=== PATIENT | male | born 1950 | race Caucasian/White ===

== ENCOUNTER → 2019-01-27 10:28 | Outpatient (CLI) | payer MEDICARE, OTHER, SELFPAY ==
--- NOTE | 2019-01-27 | DI.US.S_ITS ---
PROCEDURE: US PERIPH VENOUS LOW EXTREM RT INDICATIONS: RIGHT LEG PAIN/CELLULITIS TECHNIQUE: Real-time imaging, as well as color and pulse Doppler interrogation, were performed of the lower extremity deep veins from the inguinal ligament to the popliteal fossa. COMPARISON: None. FINDINGS: The deep veins are normally compressible, and free of intraluminal thrombus. Color and pulse Doppler demonstrate normal phasic intraluminal flow. There is normal augmentation response to distal compression maneuver. Edema noted in the right lower extremity compatible with reported history of cellulitis. IMPRESSION: No evidence of deep vein thrombosis involving the right lower extremity. Dictated by: Frannie Santa MD, PhD on 01/27/2019 at 10:59 Approved by: Frannie Santa MD, PhD on 01/27/2019 at 11:00
== END ==
PROVIDERS: Visit Provider Family Medicine
DX: M79.661 Pain in right lower leg (principal); L03.115 Cellulitis of right lower limb
CPT/HCPCS: 93971

== ENCOUNTER 2021-11-14 08:38 | Day surgery (SDC) | payer MEDICARE, OTHER, SELFPAY ==
[2021-11-14] VITALS (7 sets, daily range): BP systolic 124–145; BP diastolic 72–85; PULSE 44–51; RESP 8–16; TEMP 35.9–36.7; O2SAT 98–100; BMI 31.6
[2021-11-14 09:15] LABS: COVID19 -Nasal RAPID Negative (Negative)
[2021-11-14] MEDS: LACTATED RINGERS 1,000 ML 84 ML IV (09:31)
--- NOTE | 2021-11-14 10:38 | PM.PREOP ---
Pre-operative Note COVID-19 COVID-19 status: Negative Result date/Date tested (Pos, Neg/Pending): 11/13/21 Interval Note History & Physical reviewed/Exam performed by Physician: Yes Changes to H&P: No ASA Class (for procedural sedation): II
[2021-11-14] MEDS: MIDAZOLAM 5 MG/5 ML VIAL IV (11:34)
[2021-11-14] MEDS: fentaNYL 250 MCG/5 ML INJ IV (11:34)
--- NOTE | 2021-11-14 11:46 | PM.OP.COLON ---
Operative Date/Time/Diagnoses Date of procedure: 11/14/21 Time of procedure: 11:46 Pre-op diagnosis: Positive Cologuard test Post-op diagnosis: same Procedure & Clinicians Study performed: Colonoscopy Same procedure as scheduled: Yes Indications: Positive Cologuard test Surgeon: Manohar Hernadez Procedure Notes SCOAP/Timeout: Yes Procedure in detail: Procedure: The patient was brought to the endoscopy suite, placed in left lateral decubitus position. The patient was connected to monitoring devices. A time-out was performed. Sedation was administered. Once the patient was adequately sedated, a digital rectal exam was performed and was normal. The scope was then inserted and advanced to the cecum where the appendiceal orifice was identified and photographed. The terminal ileum was intubated and no abnormalities were noted. The scope was then slowly withdrawn over greater than 6 minutes. Mucosa was thoroughly inspected. There was sigmoid diverticulosis. There were no polyps. The scope was retroflexed in the rectum. There were mild internal hemorrhoids. The scope was straightened and removed. The patient was awakened and brought to recovery. Versed: 7 mg Fentanyl: 200 mcg EBL: 0 Findings: Moderate diverticulosis Scope withdrawal time: 33 min Sedation minutes: 61 Findings: divertiulosis Post-procedure Recommendations: Colonoscopy in 10 years Disposition: PACU
--- NOTE | 2021-11-14 13:24 | SUR.PHASEII ---
Late entry: Pt ready to go, no nausea, belly soft. Left unit in stable condition
== END 2021-11-14 12:50 | disposition home or self-care (01) ==
PROVIDERS: Referring Provider Surgery; Visit Provider Surgery
PROC: 0DJD8ZZ Inspection of Lower Intestinal Tract, Via Natural or Artificial Opening Endoscopic (ICD-10-PCS; CPT 45378; principal; 2021-11-14 10:00)
DX: R19.5 Other fecal abnormalities (principal); E11.9 Type 2 diabetes mellitus without complications; Z79.84 Long term (current) use of oral hypoglycemic drugs; K21.9 Gastro-esophageal reflux disease without esophagitis; I10 Essential (primary) hypertension; E78.5 Hyperlipidemia, unspecified; K57.30 Diverticulosis of large intestine without perforation or abscess without bleeding; K64.8 Other hemorrhoids
CPT/HCPCS: 45378; 82962; 87635; 99152; 99153; J2250; J3010